=== PATIENT | male | born 1960 | race African-American/Black ===

== ENCOUNTER 2025-08-10 16:04 | Emergency (ER) | payer MEDICAID, OTHER ==
[~2025-08-10] VITALS: Ht 177.8 cm; Wt 91.0 kg
[~2025-08-10 16:04] MED LIST: DILANTIN
[2025-08-10 16:06] VITALS: O2SAT 95
[2025-08-10 16:12] VITALS: BP 130/77; PULSE 99; RESP 16; TEMP 37.4; O2SAT 96
[2025-08-10] MEDS ORDERED: MAGNESIUM/ALUMINUM HYDROXIDE/SIMETHICONE 30ML UDC PO ONE (16:30)
[2025-08-10 16:49] LABS: BASOPHILS % 0.6 % (0.0-2.0); EOSINOPHILS % 2.5 % (0.0-5.0); HEMATOCRIT. 35.2 % (42.0-52.0); HEMOGLOBIN. 11.7 g/dL (14.0-18.0); LYMPHOCYTES % 24.5 % (20.0-50.0); MEAN PLATELET VOLUME 7.6 fl (7.4-10.4); MONOCYTES % 10.7 % (2.0-8.0); NEUTROPHILS % 61.7 % (40.0-76.0); PLATELET 236 x1000/uL (130-400); RED BLOOD CELL COUNT 4.20 mill/uL (4.7-6.1); RED CELL DISTRIBUTION WIDTH 13.7 % (11.6-14.6)
[2025-08-10 17:04] LABS: CREATININE 1.1 mg/dL (0.6-1.3)
[2025-08-10 17:05] LABS: TROPONIN I HIGH SENSITIVITY 7 ng/L (3.0-53); UREA NITROGEN BLOOD 9 mg/dL (9-23)
[2025-08-10 17:06] LABS: ASPARTATE AMINOTRANSFERASE 26 IU/L (<34)
[2025-08-10 17:07] LABS: BILIRUBIN DIRECT 0.1 mg/dL (<=3.0); BILIRUBIN TOTAL 0.4 mg/dL (0.1-1.0); PROTEIN TOTAL 6.9 g/dL (6.0-8.3)
[2025-08-10] MEDS ORDERED: AMOX-494 MT (18:42)
[2025-08-10] MEDS ORDERED: IBUP-1455 MT (18:42)
[2025-08-10] MEDS: MAGNESIUM/ALUMINUM HYDROXIDE/SIMETHICONE 30ML UDC PO NR (18:51)
== END 2025-08-10 18:56 | disposition home or self-care (01) ==
LOC: ER 16:04
DX: J18.9 Pneumonia, unspecified organism (principal); R07.89 Other chest pain
CPT/HCPCS: 36415; 71045; 74176; 80048; 80076; 84484; 85025; 93005; 99285

== ENCOUNTER 2025-08-31 10:42 | Inpatient (IN) | payer OTHER, MEDICAID ==
[~2025-08-31] VITALS: Ht 180.3 cm; Wt 97.5 kg
[~2025-08-31 10:42] MED LIST changes: +AMOX-494 MT; +IBUP-1455 MT
[2025-08-31 10:51] VITALS: O2SAT 97
[2025-08-31 11:58] LABS: BASOPHILS % 3.7 % (0.0-2.0); EOSINOPHILS % 6.4 % (0.0-5.0); HEMATOCRIT. 36.5 % (42.0-52.0); HEMOGLOBIN. 12.1 g/dL (14.0-18.0); LYMPHOCYTES % 43.4 % (20.0-50.0); MEAN PLATELET VOLUME 7.9 fl (7.4-10.4); MONOCYTES % 9.9 % (2.0-8.0); NEUTROPHILS % 36.6 % (40.0-76.0); PLATELET 256 x1000/uL (130-400); RED BLOOD CELL COUNT 4.43 mill/uL (4.7-6.1); RED CELL DISTRIBUTION WIDTH 14.0 % (11.6-14.6)
[2025-08-31 12:11] LABS: CREATININE 1.0 mg/dL (0.6-1.3); UREA NITROGEN BLOOD 10 mg/dL (9-23)
[2025-08-31 12:13] LABS: TROPONIN I HIGH SENSITIVITY 6 ng/L (3.0-53)
[2025-08-31 12:37] LABS: INR 1.0
[2025-08-31] MEDS ORDERED: ASPIRIN 325MG EC TABLET PO ONE (13:15)
[2025-08-31] MEDS ORDERED: MORPHINE SULFATE 4 MG/ML INJ (FOR IV/IM USE) IV ONE (13:15)
[2025-08-31] MEDS: MORPHINE SULFATE 4 MG/ML INJ (FOR IV/IM USE) IV NR (15:41)
[2025-08-31] MEDS: ASPIRIN 325MG EC TABLET PO NR (15:41)
[2025-08-31 16:20] VITALS: BP 133/84; PULSE 50; RESP 16; TEMP 36.3; O2SAT 98
[2025-08-31 16:25] VITALS: BP 133/86; PULSE 50; RESP 16; TEMP 36.5848
[2025-08-31] MEDS ORDERED: IPRATROPIUM/ALBUTEROL 0.5-3(2.5)MG/3ML NEB HHN PRN (17:45)
[2025-08-31] MEDS ORDERED: HYDRALAZINE 20MG/ML VIAL IV PRN (17:45)
[2025-08-31] MEDS ORDERED: SERT-422 PO (17:48)
[2025-08-31] MEDS ORDERED: LEVE500T19 PO (17:48)
[2025-08-31 20:00] VITALS: BP 119/72; PULSE 49; RESP 18; TEMP 36.3; O2SAT 97
[2025-08-31] MEDS ORDERED: LEVETIRACETAM 500MG TABLET PO SCH (21:00)
[2025-08-31] MEDS: LEVETIRACETAM 500MG TABLET PO SCH (21:24)
[2025-08-31] MEDS: PHENYTOIN SODIUM EXTENDED 100MG CAPSULE PO SCH (21:25)
[2025-09-01] VITALS: BP 109/63; PULSE 60; RESP 20; TEMP 36.8; O2SAT 94
[2025-09-01 04:00] VITALS: BP 124/71; PULSE 51; RESP 18; TEMP 36.3; O2SAT 95
[2025-09-01 07:14] LABS: BASOPHILS % 1.3 % (0.0-2.0); EOSINOPHILS % 7.5 % (0.0-5.0); HEMATOCRIT. 37.1 % (42.0-52.0); HEMOGLOBIN. 12.3 g/dL (14.0-18.0); LYMPHOCYTES % 44.5 % (20.0-50.0); MEAN PLATELET VOLUME 7.9 fl (7.4-10.4); MONOCYTES % 10.1 % (2.0-8.0); NEUTROPHILS % 36.6 % (40.0-76.0); PLATELET 236 x1000/uL (130-400); RED BLOOD CELL COUNT 4.47 mill/uL (4.7-6.1); RED CELL DISTRIBUTION WIDTH 14.0 % (11.6-14.6)
[2025-09-01 07:24] LABS: CREATININE 1.0 mg/dL (0.6-1.3); UREA NITROGEN BLOOD 12 mg/dL (9-23)
[2025-09-01 07:52] LABS: TROPONIN I HIGH SENSITIVITY 6 ng/L (3.0-53)
[2025-09-01 08:00] VITALS: BP 104/64; PULSE 46; RESP 20; TEMP 37.2; O2SAT 95
[2025-09-01] MEDS: ENOXAPARIN 40MG/0.4ML SYR SUBCUT SCH (08:33)
[2025-09-01] MEDS: SERTRALINE HCL 50MG TABLET PO SCH (08:34)
[2025-09-01] MEDS ORDERED: SERTRALINE HCL 50MG TABLET PO SCH (09:00)
[2025-09-01 12:00] VITALS: BP 96/65; PULSE 55; RESP 18; TEMP 36.9; O2SAT 96
[2025-09-01 16:00] VITALS: BP 118/72; PULSE 51; RESP 18; TEMP 36.9; O2SAT 98
[2025-09-01 20:18] VITALS: BP 112/74; PULSE 53; RESP 17; TEMP 36.1; O2SAT 97
[2025-09-02 00:14] VITALS: BP 108/70; PULSE 50; RESP 19; TEMP 35.9; O2SAT 95
[2025-09-02 04:55] VITALS: BP 100/56; PULSE 56; RESP 20; TEMP 36.4; O2SAT 98
[2025-09-02 08:00] VITALS: BP 104/65; PULSE 54; RESP 18; TEMP 36.6; O2SAT 95
[2025-09-02] MEDS ORDERED: ENOXAPARIN 100MG/ML SYR SUBCUT SCH (09:52)
[2025-09-02] MEDS ORDERED: NALOXONE HCL 0.4MG/ML VIAL IV PRN (10:00)
[2025-09-02] MEDS: ENOXAPARIN 60MG/0.6ML SYR SUBCUT SCH (10:41)
[2025-09-02 12:00] VITALS: BP 104/78; PULSE 67; RESP 20; TEMP 36.3; O2SAT 98
[2025-09-02] MEDS ORDERED: IOHEXOL-350 100 ML BOTTLE ONE (14:43)
[2025-09-02 16:00] VITALS: BP 106/80; PULSE 62; RESP 20; TEMP 36.6; O2SAT 95
[2025-09-02 20:00] VITALS: BP 111/71; PULSE 63; RESP 16; TEMP 36.7; O2SAT 98
[2025-09-02] MEDS: ENOXAPARIN 100MG/ML SYR SUBCUT SCH (20:49)
[2025-09-03] VITALS: BP 108/69; PULSE 61; RESP 18; TEMP 36.6; O2SAT 94
[2025-09-03 04:00] VITALS: BP 100/62; PULSE 55; RESP 16; TEMP 36.6; O2SAT 92
[2025-09-03 08:00] VITALS: BP 103/71; PULSE 79; RESP 20; TEMP 36.8; O2SAT 96
[2025-09-03 12:00] VITALS: BP 118/80; PULSE 75; RESP 18; TEMP 36.6; O2SAT 97
[2025-09-03 16:00] VITALS: BP 132/91; PULSE 68; RESP 20; TEMP 36.2; O2SAT 98
[2025-09-03] MEDS: HYDROCODONE/ACETAMINOPHEN 5/325MG TABLET PO PRN (17:16)
[2025-09-03 20:00] VITALS: BP 117/72; PULSE 67; RESP 20; TEMP 36.6; O2SAT 97
[2025-09-04] VITALS: BP 118/68; PULSE 64; RESP 20; TEMP 37; O2SAT 95
[2025-09-04 04:00] VITALS: BP 105/70; PULSE 56; RESP 18; TEMP 36.6; O2SAT 96
[2025-09-04 08:00] VITALS: BP 105/58; PULSE 73; RESP 16; TEMP 36.4; O2SAT 95
[2025-09-04 12:00] VITALS: BP 105/70; PULSE 67; RESP 18; TEMP 36.3; O2SAT 99
[2025-09-04 16:00] VITALS: BP 126/70; PULSE 58; RESP 18; TEMP 36.4; O2SAT 99
[2025-09-04] MEDS ORDERED: APIX5TAB MT (16:21)
[2025-09-04 17:18] VITALS: BP 126/70; PULSE 58; RESP 18; TEMP 97.5
== END 2025-09-04 18:25 | disposition home or self-care (01) | DRG 176 ==
LOC: ER 10:42 → EDBEDREQ 13:18 → EDBEDREQTM 13:18 → 7WST 17:02
PROVIDERS: ADMIT Internal Medicine; ATTEND Internal Medicine
DX: I26.99 Other pulmonary embolism without acute cor pulmonale (principal); D64.9 Anemia, unspecified; I12.9 Hypertensive chronic kidney disease with stage 1 through stage 4 chronic kidney disease, or unspecified chronic kidney disease; J44.9 Chronic obstructive pulmonary disease, unspecified; N18.9 Chronic kidney disease, unspecified; Z79.01 Long term (current) use of anticoagulants; Z87.01 Personal history of pneumonia (recurrent)
CPT/HCPCS: 36415; 71045; 71275; 80048; 84484; 85025; 85379; 93005; 96374; 99285; A4606; J1650; J2270; Q9967

== ENCOUNTER 2025-09-09 11:52 | Emergency (ER) | payer OTHER, MEDICAID ==
[~2025-09-09] VITALS: Ht 180.3 cm; Wt 97.0 kg
[~2025-09-09 11:52] MED LIST changes: -AMOX-494 MT; +APIX5TAB MT; -DILANTIN; +LEVE500T19 PO; +SERT-422 PO
[2025-09-09 12:00] VITALS: O2SAT 99
[2025-09-09] MEDS ORDERED: APIX5TAB MT (12:38)
[2025-09-09] MEDS ORDERED: APIXABAN 5 MG TABLET PO SCH (12:45)
[2025-09-09] MEDS: APIXABAN 5 MG TABLET PO SCH (12:56)
[2025-09-09 13:01] VITALS: BP 114/65; PULSE 59; RESP 16; TEMP 36.7; O2SAT 99
== END 2025-09-09 13:06 | disposition home or self-care (01) ==
LOC: ER 11:52
DX: Z76.0 Encounter for issue of repeat prescription (principal); Z79.899 Other long term (current) drug therapy
CPT/HCPCS: 99283